=== PATIENT | male | born 1985 | race Caucasian/White ===

== ENCOUNTER 2025-04-11 22:20 | Emergency (ER) | payer SELFPAY ==
[2025-04-11 22:29] VITALS: BP 138/78; PULSE 107; RESP 20; TEMP 36.9; O2SAT 98; BMI 36.9
--- NOTE | 2025-04-11 22:33 | ED_ITS ---
Discharge Plan Disposition Patient Disposition: Home, Self-Care Referrals Follow up/Referrals: Provider,Referral, MD [Primary Care Provider, Medical] - See instructions Activity Restrictions/Add. Instructions Additional Instructions/Restrictions: Patient is medically cleared from an emergency standpoint. Clinical Impressions Clinical Impression: Alcohol intoxication, Medical clearance for incarceration Discharge ED Provider: Donn Zhao General Adult HPI General Stated complaint: medical clearance Time Seen by Provider: 04/11/25 22:28 History of Present Illness HPI narrative: Patient is a 39-year-old brought in today by police while intoxicated. 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 Patient has no complaints currently does have a history of CABG and stroke and supposed to be on medications but denies any medical complaints today. Denies ingesting any other drugs. [facility] Disclaimer: The information contained in this section may have been updated after the patient was seen, as this information can be updated by other users. Social History Smoking Status: Current every day smoker alcohol intake: never current occupational status: other Travel in the last 8 weeks?: None ROS Obtained: Yes All systems reviewed & no additional complaints except as documented Physical Exam General General appearance: appears intoxicated (But is awake answering questions appropriately) Head Head exam: atraumatic and normocephalic Eye Eye exam: Present normal appearance Neck Neck exam: Present normal inspection; Absent tenderness Chest Chest inspection: Present normal inspection and symmetric chest wall rise Respiratory Respiratory exam: Present normal lung sounds bilaterally and respiratory distress Cardiovascular Cardiovascular exam: Present regular rate and normal rhythm Neurological Exam Neurological exam: Present alert, oriented X3, CN II-XII intact and normal gait; Absent motor sensory deficit Medical Decision Making Medical Records Screening: Per USPSTF and CDC recommendations, given the prevalence of disease in our region, it is our hospital?s policy to screen for HIV and viral Hepatitis for all patients aged 18 and over and those with ongoing risk factors. [facility] Inquiry Pt receiving controlled substance: No Medical Decision Narrative: 39-year-old male brought in today police for medical clearance he does appear intoxicated and admits to drinking alcohol which is consistent with his clinical appearance. No further emergency workup is indicatedfrom my perspective. As this would not change emergency medicine intervention. The remainder of his workup is forensic alone. He has no complaints his exam is normal aside from his mild intoxicated appearance. Therefore he was cleared to go to police. Critical Care Critical Care Time Critical Care Time: No
[2025-04-11 22:38] VITALS: BP 138/78; PULSE 107; RESP 20; TEMP 36.9; O2SAT 98
== END 2025-04-11 22:40 | disposition home or self-care (01) ==
LOC: ER 22:38
PROVIDERS: Emergency Provider Student in an Organized Health Care Education/Training Program
DX: Z00.8 Encounter for other general examination (principal)
CPT/HCPCS: 99281